=== PATIENT | male | born 1950 | race African-American/Black ===

== ENCOUNTER 2019-05-20 19:35 | Emergency (ER) | payer OTHER ==
[~2019-05-20] VITALS: Ht 175.3 cm; Wt 117.9 kg
[~2019-05-20 19:35] MED LIST: CARVEDILOL25 MG PO; DOXAZOSIN MESYLA4 MG PO; GLUCOTROL5 MG PO; LIPITOR 20 MG T20 M1 PO; LOPRESSOR100 M1 PO; LOSARTAN PO; NORVASC10 MG PO; VENTOLIN HFA 1818 GM INH; VITAMIN D31000 UNIT PO
[2019-05-20 22:23] LABS: BASOPHILS 2.5 % (0.0-2.0); EOSINOPHILS 3.2 % (0.0-3.0); HEMATOCRIT 37.7 % (42.0-52.0); HEMOGLOBIN 11.6 gm/dL (14.0-18.0); LYMPHOCYTES 21.6 % (24.0-44.0); MCH 23.1 pg (26.0-34.0); MCHC 30.8 g/dL (28.0-37.0); PLATELET COUNT 260 thou/uL (150-400); POLYS 65.7 % (36.0-66.0); RBC 5.03 mil/uL (4.50-6.00); RDW 17.2 % (10.5-14.5); WBC 9.2 thou/uL (4.0-11.0)
[2019-05-20 22:31] LABS: URINE BILIRUBIN NEGATIVE (Negative); URINE BLOOD TRACE (Negative); URINE CLARITY CLEAR; URINE COLOR YELLOW; URINE GLUCOSE-RANDOM* NEGATIVE (Negative); URINE KETONES NEGATIVE (Negative); URINE LEUKOCYTES-REFLEX NEGATIVE (Negative); URINE NITRITE-REFLEX NEGATIVE (Negative); URINE PROTEIN (DIPSTICK) 2+ (Negative); URINE SPECIFIC GRAVITY 1.025 (1.005-1.035); URINE UROBILINOGEN 0.2 E.U./dl (0.2-1.0)
[2019-05-20 22:39] LABS: CREATININE 1.7 mg/dL (0.7-1.3); POTASSIUM 4.3 mmol/L (3.5-5.1)
[2019-05-20 22:45] LABS: ALBUMIN 3.2 g/dL (3.4-5.0); TOTAL BILIRUBIN 0.1 mg/dL (<0.1-1.0); TOTAL PROTEIN 7.6 g/dL (6.4-8.2)
[2019-05-20 22:56] LABS: BACTERIA-REFLEX 1-9 Few /HPF (None Seen); MUCUS 0-3 Light strn/LPF (None Seen); SQUAMOUS 4-10 Moderate /LPF (0-3); URINE RBC 3-10 Few /HPF (0-2); URINE WBC-REFLEX 6-15 Few /HPF (0-5)
[2019-05-20 22:57] LABS: CELLULAR CASTS 0-3 Few /LPF (None Seen); CRYSTALS None Seen /LPF (None Seen)
[2019-05-21] MEDS ORDERED: CIPROFLOXACIN500 M1 PO (00:12)
[2019-05-21 00:40] VITALS: BP 148/90
--- NOTE | 2019-05-22 07:47 | EKG ---
[place] [address] [place] [facility] [employer] [address] ELECTROCARDIOGRAM REPORT Name: ALMA DOMINGO Room #: [facility]P [facility] [id number] ������������������ Admission: 05/20/19 ������������������ Attend Phys: Discharge: 05/21/19 ������������������ Date of : 52 Report #: [id number] ����������������������������������������������������������������� [id number] THIS REPORT FOR: //name// [facility] ED Test Date: 2019-05-20 Test Time: 19:58:28 Pat Name: ALMA DOMINGO Department: Room: Gender: [employer] Operator: Christoph : 1950 Requested By: Oneil Odell Order Number: [id number] MD: Matti Ruth Measurements Intervals [place] Rate: 77 P: 47 VA: 146 QRS: -2 QRSD: 117 T: 193 QT: 387 QTc: 438 Interpretive Statements Sinus rhythm Abnrm T, consider ischemia, lateral lds Compared to ECG 09/07/2017 06:29:20 Sinus tachycardia no longer present Electronically Signed On 05-22-2019 7:47:08 CDT by Matti Ruth [email or web address] ��������������������������������������������� <ELECTRONICALLY SIGNED> ���������������������������������������� By: Matti Ruth MD, [facility] ��������������������������������������������� 05/22/19 [id number] 57 57 Matti Ruth MD, FAC /EPI
== END 2019-05-21 00:41 | disposition home or self-care (01) ==
LOC: ER 19:35
PROVIDERS: Emergency Medicine
DX: N39.0 Urinary tract infection, site not specified (principal); F17.210 Nicotine dependence, cigarettes, uncomplicated; E11.9 Type 2 diabetes mellitus without complications; I10 Essential (primary) hypertension; E78.5 Hyperlipidemia, unspecified; G47.30 Sleep apnea, unspecified; J44.9 Chronic obstructive pulmonary disease, unspecified; Z87.442 Personal history of urinary calculi; Z90.89 Acquired absence of other organs; Z86.73 Personal history of transient ischemic attack (TIA), and cerebral infarction without residual deficits